=== PATIENT | female | born 1980 | race Caucasian/White ===

== ENCOUNTER → 2017-04-23 10:39 | Outpatient (CLI) | payer MEDICAID, SELFPAY ==
--- NOTE | 2017-04-23 10:43 | XR_ITS ---
XR IVP w KUB CLINICAL INDICATION: Right-sided pain following oophorectomy, right-sided abdominal pain ITS.REASON: looking for blockage ORDERING PHYSICIAN: Arjun Navarro MD PATIENT AGE: 37 years COMPARISON: None FINDINGS: Scattered exam shows multiple sutures in both right and left pelvic region. No renal or ureteral calculi evident. There is prompt bilateral renal excretion with kidneys of normal size shape and position. No hydronephrosis or ureteral dilatation. Urinary bladder has an unremarkable appearance with only minimal post void residual urine. No evidence of contrast extravasation IMPRESSION: Negative IVP. No evidence of obstruction or other significant anomalies
== END ==
PROVIDERS: Family Provider Family Medicine; PCP Internal Medicine Cardiovascular Disease; Visit Provider Obstetrics & Gynecology
DX: N20.0 Calculus of kidney (principal)
CPT/HCPCS: 74400; Q9967

== ENCOUNTER → 2017-06-04 12:56 | Outpatient (CLI) | payer MEDICAID, SELFPAY ==
--- NOTE | 2017-06-04 12:59 | MR_ITS ---
MR lumbar spine wo con, MR 3-d myelogram/MRCP HISTORY: Low back pain, constant right-sided low back pain with right foot numbness ORDERING PHYSICIAN: Cb Estrella MD PATIENT AGE: 37 years COMPARISON: MRI of 03/19/2011 TECHNIQUE: Standard multiplanar multiecho sequences are performed without contrast. 3-D MIP and myelographic images are also rendered and reviewed FINDINGS: There is normal alignment. The spinal cord ends at the L1 level. T11-T12, T12-L1, L1-L2, L2-L3, and L3-L4 have an unremarkable MRI appearance. L4-L5: There is a mild concentric bulging disc. There is a small broad-based right foraminal and lateral disc protrusion/disc osteophyte complex which does abut the exiting L4 nerve root and has a somewhat similar appearance compared to the previous exam. There is right foraminal narrowing at this level. Facet and ligamentum flavum hypertrophy is also present contributing to the lateral recess and foraminal narrowing. There is mild narrowing of the canal at L4-L5 with borderline canal stenosis. The facet hypertrophic changes are slightly worse compared to the previous exam. Right-sided foraminal narrowing may also be slightly worse. L5-S1: Unremarkable. No extruded herniated disc. IMPRESSION: 1. Mild Concentric bulging disc at L4-L5 with a small broad-based right foraminal and lateral disc protrusion/disc osteophyte complex which does abut the exiting L4 nerve root and has a somewhat similar appearance compared to the previous exam. There is right foraminal narrowing at this level. Facet and ligamentum flavum hypertrophy is also present contributing to the lateral recess and foraminal narrowing. There is mild narrowing of the canal at L4-L5 with borderline canal stenosis. The facet hypertrophic changes are slightly worse compared to the previous exam. Right-sided foraminal narrowing may also be slightly worse. 2. No extruded herniated disc
== END ==
PROVIDERS: Family Provider Family Medicine; PCP Internal Medicine Cardiovascular Disease; Visit Provider Family Medicine
DX: M54.41 Lumbago with sciatica, right side (principal)
CPT/HCPCS: 72148; 76376

== ENCOUNTER 2017-08-29 13:30 | Outpatient (RCR) | payer MEDICAID, SELFPAY | END 2017-08-29 13:31 | disposition home or self-care (01) | LOC: PT 13:30 | PROVIDERS: Family Provider Family Medicine; PCP Internal Medicine Cardiovascular Disease; Visit Provider Neurological Surgery | DX: M54.31 Sciatica, right side (principal) | CPT/HCPCS: 97010; 97012; 97014; 97033; 97035; 97110; 97140; 97164; G0283 ==

== ENCOUNTER → 2017-10-29 07:29 | Outpatient (CLI) | payer MEDICAID, SELFPAY ==
--- NOTE | 2017-10-29 07:36 | US_ITS ---
ULTRASOUND THYROID HISTORY: Thyroid enlarged Past history of thyroid nodule PROCEDURE: Multiple sagittal and transverse ultrasound images of the thyroid. COMPARISON 11/12/2010 ultrasound thyroid: ----- FINDINGS: Bilateral thyroid enlargement Right lobe with at least 3 nodules right lobe. One is calcification. Left lobe has one tiny cyst. Minimal flow to the thyroid on color Doppler survey RIGHT LOBE: 5.0 cm x 1.9 cm AP x 2.7 cm wide. . Nodule A: Hypoechoic small nodule lateral aspect upper pole measuring 3.4 mm maximally Unchanged since prior study 2010 and could merely be debris-filled cyst Nodule B: 9.1 mm X5.6 x 7.3 mm. Solid nodule interval development of echogenic calcifications along its posterior margin. More likely benign but somewhat concerning.. The nodule itself is not changed significantly in size since 2010 but the calcifications appear to be new. This warrants close follow-up and consideration of biopsy if it progresses .. Nodule C:. Up to 1.5 cm ovoid solid nodule at lower pole left lobe. This is new since prior study. LEFT LOBE: 4.9 cm length x 2.9 cm wide x 1.7 cm AP. Nodule A: Small likely cyst central lower left lobe this measures 4 mm widexless than 2 mm AP . The other small nodules previously identified in the left lobe are not apparent today. Left lobe fairly homogeneous today & otherwise unremarkable ISTHMUS: No significant appearing findings The thickness isthmus. Slightly greater particularly to the left than previous study but no discrete nodule.. Slight generous thickness at 5.5 mm AP just to the left of midline maximally but no nodule. IMPRESSION: 1. Bilateral Thyroid Enlargement. 2. Right Lobe: with 3 thyroid nodules.: ... The nodule labeled B is similar in size ( vs 2011) & is at the anterior lower/mid right lobe... However I would note this nodule does demonstrate some new calcification along its posterior margin .. Warrants close follow-up consider further investigation .... There is a new nearly 1.5 cm hypoechoic nodule at the lower pole right lobe labeled C ...Tiny stable nodule labeled A at upper pole not of concern 2. Left Lobe. No significant nodules. Only a small cyst centrally 3. Isthmus is slightly thicker but within normal limits.
--- NOTE | 2017-10-29 10:12 | MR_ITS ---
MR head/brain wo/w con Ordering Physician: Jamal Maldonado MD Patient Age: 37 years: Female HISTORY paresthesia. Involve the movement of arms and legs. Burning sensation entire body. Confusion. Symptoms off and on for years but worsening over the past year: ITS.REASON: INVOL MOVEMENT, PARESTHESIA OF SKIN TECHNIQUE: Pre and postcontrast imaging of brain : Precontrast Multiplanar FLAIR, T1, T2 weighted images along with axial diffusion/ADC imaging performed on 1.5 T. Siemens, MRI. Postcontrast imaging [id number] ProHance T1-weighted images axial & coronal plane performed COMPARISON :No relevant prior studies FINDINGS No mass lesion. No abnormal areas of enhancement. No lesions evident Normal anatomy. Cranial cervical junction is normal. The posterior fossa appears satisfactory. CP angles are clear IACs unremarkable. Right vertebral artery may very slightly indenting right aspect of the medulla on axial image 4 but this appears to be merely normal variation Sella on appears satisfactory. The ventricles and basal cisterns appear satisfactory. Jordan-white and white matter patterns and interface satisfactory. No remarkable deep white matter lesions or signal abnormalities. . No extra-axial collection. Diffusion images reveal no acute or recent infarct nor ischemia. The skull is intact. Scalp unremarkable. Orbits appear satisfactory. Moderate mucosal thickening throughout the ethmoid air cells bilaterally. A which may reflect a chronic sinusitis here. Mild mucosal thickening maxillary sinuses.. Mastoid air cells clear. Middle ear clear. IMPRESSION: ... 1. MR brain within normal limits. No mass lesion. No abnormal areas of enhancement. No white matter lesions evident.. No signal abnormalities. Minor observations in text: ..Moderate mucosal thickening throughout ethmoid air cells .. Generous mild ectatic right vertebral artery may slightly indent the right aspect medulla. Likely merely normal anatomic but noted
== END ==
PROVIDERS: Family Provider Family Medicine; PCP Internal Medicine Cardiovascular Disease; Visit Provider Family Medicine
DX: R25.9 Unspecified abnormal involuntary movements (principal); R20.2 Paresthesia of skin; E04.1 Nontoxic single thyroid nodule
CPT/HCPCS: 70553; 76536; A9576

== ENCOUNTER → 2017-11-05 13:47 | Outpatient (CLI) | payer MEDICAID, SELFPAY ==
--- NOTE | 2017-11-05 13:52 | XR_ITS ---
At XR hand LT min 3V HISTORY: Injury one year ago still 30 ITS.REASON: LEFT HAND PAIN ORDERING PHYSICIAN: Ernie Watkins PATIENT AGE: 37 years COMPARISON: None TECHNIQUE: PA, Oblique and Lateral Hand FINDINGS: No fracture or dislocation. No lytic or blastic change. There is normal mineralization.. The joint spaces are well-preserved. No significant degenerative/arthritic changes. At the DIP joint third finger there is a tiny cyst or defect at the mid articular cortex of distal phalanx base.. Very small less than 1 mm barely evident. Noted for completeness. Borderline narrowing at this joint. Small benign bone island at the ulnar styloid not felt to be of of significance IMPRESSION: No prominent findings. Left hand intact. Only note Tiny cyst or irregularity at the articular cortex base of distal phalanx third finger. Correlation required
== END ==
PROVIDERS: PCP Orthopaedic Surgery Adult Reconstructive Orthopaedic Surgery; Visit Provider Orthopaedic Surgery Adult Reconstructive Orthopaedic Surgery
DX: M79.642 Pain in left hand (principal)
CPT/HCPCS: 73130

== ENCOUNTER → 2017-11-10 15:19 | Outpatient (CLI) | payer MEDICAID, SELFPAY ==
[2017-11-10 16:41] LABS: Free T4 (Free Thyroxine) 0.93 ng/dl (0.76-1.46); Thyroid Stimulating Hormone 1.27 uIU/ml (0.358-3.740)
[2017-11-12 17:12] LABS: Thyroid Peroxidase Antibodies 18 IU/mL (0-34)
[2017-11-13 16:42] LABS: Calcitonin 2.4 pg/mL (0.0-5.0); Thyroid Stimulating Immunoglob <0.10 IU/L (0.00-0.55)
== END ==
PROVIDERS: Family Provider Family Medicine; PCP Orthopaedic Surgery Adult Reconstructive Orthopaedic Surgery; Visit Provider Otolaryngology
DX: E04.1 Nontoxic single thyroid nodule (principal)
CPT/HCPCS: 36415; 82308; 84439; 84443; 84445; 86376

== ENCOUNTER → 2017-11-14 08:43 | Outpatient (CLI) | payer MEDICAID, SELFPAY ==
--- NOTE | 2017-11-14 08:43 | FL_ITS ---
EXAM: Barium swallow/esophagram. INDICATION: ITS.REASON: dysphasia ORDERING PHYSICIAN: Rocco Levin MD PATIENT AGE: 37 years COMPARISON: None TECHNIQUE: In the upright position the patient was observed to swallow barium in both the AP and lateral view. The cervical esophagus was examined under fluoroscopy with images obtained. The patient was then placed prone in the right anterior oblique position and was observed to swallow barium with Valsalva technique . FLUOROSCOPY TIME: 50 seconds FINDINGS: There was no evidence of aspiration. There was normal peristalsis. No filling defects or mucosal abnormalities. No masses or strictures. The esophagus is midline in the neck and in the chest. No external filling defects are evident. IMPRESSION: Negative barium swallow.
== END ==
PROVIDERS: Family Provider Family Medicine; PCP Orthopaedic Surgery Adult Reconstructive Orthopaedic Surgery; Visit Provider Otolaryngology
DX: R13.10 Dysphagia, unspecified (principal)
CPT/HCPCS: 74220

== ENCOUNTER → 2017-11-19 09:46 | Outpatient (CLI) | payer MEDICAID, SELFPAY ==
--- NOTE | 2017-11-19 09:50 | US_ITS ---
FNA w guidance, FNA with guidance x2/second lesion US thyroid HISTORY: Suspicious thyroid nodules ITS.REASON: THYROID NODULE RT ORDERING PHYSICIAN: Rocco Levin MD PATIENT AGE: 37 years COMPARISON: 10/29/2017 Prebiopsy ultrasound: There are 2 nodules of interest 1 which is in the mid pole containing calcifications measuring 7 x 6 mm and one in the lower pole which is new at 1.5 cm. Fine-needle aspiration was performed of both of these nodules. TECHNIQUE: Following obtaining informed consent, using aseptic technique and local anesthesia with buffered lidocaine, fine-needle aspiration was performed of the each of the 2 nodules of interest using sonographic guidance. 3 passes were made into each nodule with a 25-gauge needle. Specimen was given to cytology. The patient tolerated the procedure well without evidence of immediate complications and left the ultrasound suite in stable condition. CYTOLOGY: Nodule A: Benign follicular nodule, no evidence of malignancy Nodule B: No evidence of malignancy, consistent with lymphocytic thyroiditis IMPRESSION: Status post fine-needle aspiration of the right thyroid nodules without complication. No evidence of malignancy
== END ==
PROVIDERS: Family Provider Family Medicine; PCP Orthopaedic Surgery Adult Reconstructive Orthopaedic Surgery; Visit Provider Otolaryngology
DX: E04.1 Nontoxic single thyroid nodule (principal)
CPT/HCPCS: 10022; 76536

== ENCOUNTER → 2017-11-20 14:21 | Outpatient (CLI) | payer MEDICAID, SELFPAY ==
--- NOTE | 2017-11-20 14:24 | MR_ITS ---
MR wrist LT wo con HISTORY left wrist pain, history of scaphoid fracture. Radial sided wrist pain ITS.REASON: LEFT WRIST PAIN ORDERING PHYSICIAN: Ernie Watkins PATIENT AGE: 37 years Comparison: 11/05/2017 FINDINGS: Motion artifact does obscure fine detail. No acute fracture is evident. A cystic areas present within the triquetrum measuring 5 mm. The scaphoid has an unremarkable appearance with no evidence of avascular necrosis. Normal alignment of the carpal bones. The ulnar and distal attachment of the triangular fibrocartilage is not well delineated due to motion artifact and cannot be completely cleared. No soft tissue lesions or masses. IMPRESSION: 1. No fracture or dislocation. 2. No evidence of avascular necrosis of the scaphoid. 3. 5 mm T2 hyperintensity in the central aspect of the trapezium with iso to slightly hypointense on the T1-weighted images consistent with a cystic lesion. Consider follow-up to confirm stability, probably benign
== END ==
PROVIDERS: Family Provider Family Medicine; PCP Orthopaedic Surgery Adult Reconstructive Orthopaedic Surgery; Visit Provider Orthopaedic Surgery Adult Reconstructive Orthopaedic Surgery
DX: S60.85 Superficial foreign body of wrist (principal)
CPT/HCPCS: 73221

== ENCOUNTER → 2018-01-05 13:53 | Outpatient (CLI) | payer MEDICAID, SELFPAY ==
--- NOTE | 2018-01-05 13:54 | US_ITS ---
ULTRASOUND THYROID PROCEDURE: Multiple sagittal & transverse ultrasound images of the thyroid. HISTORY: Thyroid nodule. Follow-up COMPARISON: Previous thyroid ultrasound October 29, 2017. And November 2010 ----- FINDINGS: Bilateral thyroid enlargement. At least 3 nodules on right. One with some calcification. Left lobe of tiny cysts. Relative decreased color Doppler flow noted bilateral RIGHT LOBE: 5.7 cm length is 2.8 cm wide x 2.3 cm AP. Nodule A: 4.3 mm to 4 mm probable debris-filled cyst upper pole Nodule B: Stable solid nodule Up to 8.6 mm x 7.7 x 6.8 mm nodule. However again note some scattered calcifications at the posterior wall. It. Nodule C: 14.4mm x 13 mm x 8 mm solid nodule at, off lower pole right kidney. No changes prior study LEFT LOBE: 5.6 cm length x 2.5 cm wide x 1.8 cm AP Nodule A: Tiny cystic area 3.8 x 1.1 mm midportion left lobe. Barely appreciable. Stable No other nodules or findings left lobe ISTHMUS: 3.9 mm AP thickness.. No nodules IMPRESSION Bilateral thyroid enlargement 3 nodules right lobe again observed.. No appreciable change since October . minimal calcification at posterior aspect solid nodule B . Solid Nodule C at lower pole measures 1.44 cm maximum on today's study.
== END ==
PROVIDERS: Family Provider Family Medicine; PCP Orthopaedic Surgery Adult Reconstructive Orthopaedic Surgery; Visit Provider Otolaryngology
DX: E04.1 Nontoxic single thyroid nodule (principal); E04.9 Nontoxic goiter, unspecified
CPT/HCPCS: 76536

== ENCOUNTER → 2018-07-14 13:37 | Outpatient (CLI) | payer MEDICAID, SELFPAY ==
--- NOTE | 2018-07-14 13:40 | US_ITS ---
ULTRASOUND THYROID HISTORY: Thyroid enlarged follow-up thyroid nodules PROCEDURE: Multiple sagittal and transverse ultrasound images of the thyroid. COMPARISON:. December 2017 thyroid ultrasound; October 2017 thyroid ultrasound,. Also November 2010 ----- FINDINGS: Bilateral thyroid enlargement with bilateral thyroid nodules most evident at the right lobe. Overall slight decreased color Doppler flow at the thyroid with no areas of significant increased flow as might be seen with active inflammation/thyroiditis RIGHT LOBE: 5 cm length x 3 cm wide x 2.3 cm AP. Nodule A: Very subtle Vague nodule at the posterior aspect of upper lobe measures 6.2 mm x 5.7 mm.. This was not seen on previous studies Nodule B: Subtle 4.3 mm x 2.9 mm hypoechoic hypoechoic nodule or debris-filled cyst at lateral aspect upper lobe. Minimal calcifications at posterior margin again noted. (this nodule matches area described on the previous 2018. This nodule size has not unchanged since 2010 but the minimal calcifications posteriorly slightly more apparent vs 2011.) Nodule C: Solid nodule anterior aspect mid right lobe again seen and stable stable measuring up to 7.6 x 6.5 mm. Anterior aspect mid right lobe. No significant change since 2018 Nodule D:. Solid nodule measures 9 .8 X 8.8mm X 7.4 mm-this nodule actually appears & measures smaller than previous study . LEFT LOBE: 5.8 cm length is 2.6 cm wide x 1.7 cm AP. Nodule A: Small vague density likely partial cyst with moderate wall thickness. Measures 4 mm midportion left lobe . ISTHMUS: This is measures 4.2 mm AP. -------IMPRESSION: 1. Bilateral thyroid enlargement, with bilateral thyroid nodules. 2. The vague nodules at the right lobe, previously seen have shown no progression.--(In fact the largest solid nodule at the lower pole right lobe measures and appears slightly smaller versus 2018 exam abdomen (... There is a vague new solid nodule identified on today's study at upper upper pole right lobe which measures 6 mm.. .
== END ==
PROVIDERS: PCP Family Medicine; Visit Provider Otolaryngology
DX: Z86.39 Personal history of other endocrine, nutritional and metabolic disease (principal)
CPT/HCPCS: 76536

== ENCOUNTER 2018-09-09 21:46 | Emergency (ER) | payer MEDICAID, SELFPAY ==
[2018-09-09 21:46] VITALS: BP 140/86; PULSE 78; RESP 16; TEMP 37; O2SAT 98
[2018-09-09 21:47] VITALS: BP 140/100; PULSE 93; RESP 22; TEMP 36.8; O2SAT 100; BMI 34.0
[2018-09-09 21:56] VITALS: BP 134/86; PULSE 97; RESP 18; O2SAT 100
--- NOTE | 2018-09-09 21:57 | XR_ITS ---
XR chest 2V HISTORY: Chest pain, shortness of air ITS.REASON: CP/SOA ORDERING PHYSICIAN: Bryce Roland MD PATIENT AGE: 38 years COMPARISON: None FINDINGS: The cardiomediastinal silhouette and pulmonary vascularity are within normal limits. The lungs are clear without infiltrates, suspicious nodules, or pleural effusions. There are increased markings in the right lung base consistent with summation artifact. No lobar consolidation or collapse. No acute bony abnormalities. IMPRESSION: No acute finding
--- NOTE | 2018-09-09 22:05 | CT_ITS ---
CT abdomen pelvis w con CLINICAL INDICATION: Abdominal pain and tenderness with rectal bleeding ITS.REASON: c/o abd pain that radiates into back and shoulder ORDERING PHYSICIAN: Bryce Roland MD PATIENT AGE: 38 years COMPARISON: None TECHNIQUE: Axial images obtained with sagittal and coronal reformats. All CT scans at the facility use one or more dose reduction, viz: automated exposure control, ma/kV adjustment per patient size (including targeted exams where dose is matched to indication, i.e. head), or iterative reconstruction technique. PROCEDURE: Oral Contrast: None IV Contrast: 75 mg Optiray 350. FINDINGS: Lower thorax: Mild thickening of the distal esophagus small amount of air within the esophagus and small hiatal hernia. ABDOMEN: Liver: No masses or biliary dilatation. Gallbladder: Nondistended. No radio opaque stones. Pancreas: No masses or peripancreatic fluid collections. Spleen: Unremarkable. Adrenals: There is a small left adrenal nodule at 12 mm nonspecific Kidneys/ureters: No masses. No renal calculi. No hydronephrosis. No perinephric fluid collections. No ureteral dilatation or obvious ureteral calculi. Stomach bowel: There is mild amount retained colonic feces in the ascending colon. Mild gaseous distention of the colon. Appendix: No evidence of appendicitis. PELVIS: Reproductive: Prior hysterectomy Bladder: Nondistended. No obvious stones or masses. ABDOMEN & PELVIS: Peritoneum: No abnormal fluid collections. No obvious inflammatory changes. No free air. Lymph nodes: Small nodes are present in the periaortic region nonspecific. Vasculature: No evidence of abdominal aortic aneurysm. No retroperitoneal hemorrhage evident. Bones: No acute fracture Small umbilical hernia containing fat IMPRESSION: 1. No acute abdominal or pelvic findings. 2. Small hiatal hernia. 3. Nonspecific 12 mm left adrenal nodule 4. Mild constipation of the right: with mild gaseous distention of the sigmoid colon
[2018-09-09 22:11] LABS: Basophils # 0.1 K/mm3 (0-0.2); Eosinophils # 0.2 K/mm3 (0.0-0.4); Hematocrit 42.5 % (37.0-47.0); Hemoglobin 14.7 g/dL (12.2-16.2); Lymphocytes # 4.2 K/mm3 (0.7-4.5); Lymphocytes % 41.7 % (10-50); Mean Corpuscular HGB Conc 34.6 g/dL (31.8-35.4); Mean Corpuscular Hemoglobin 31.1 pg (27.0-31.2); Mean Corpuscular Volume 89.7 fl (81-99); Mean Platelet Volume 7.1 fl (7.4-10.4); Monocytes # 0.4 K/mm3 (0.1-1.0); Monocytes % 3.4 % (1.7-9.3); Neutrophils # 5.3 K/mm3 (1.8-7.8); Neutrophils % 51.8 % (37.0-80.0); Platelet Count 362 K/mm3 (142-424); Red Blood Count 4.73 M/mm3 (4.20-5.40); Red Cell Distribution Width 13.7 % (11.5-17.5); White Blood Count 10.1 K/mm3 (4.8-10.8)
--- NOTE | 2018-09-09 22:26 | CT_ITS ---
CT angio chest HISTORY: Chest pain, smoker ITS.REASON: pe protocol/ cp ORDERING PHYSICIAN: Bryce Roland MD PATIENT AGE: 38 years COMPARISON: None TECHNIQUE: Axial images obtained following the administration of 70 mL of Optiray 350 . Sagittal, and coronal reformatted images are also generated and reviewed. All CT scans at the facility use one or more dose reduction, viz: automated exposure control, ma/kV adjustment per patient size (including targeted exams where dose is matched to indication, i.e. head), or iterative reconstruction technique. FINDINGS: PULMONARY ARTERIES:Pulmonary arterial opacification is somewhat limited. No central pulmonary embolus evident. Peripheral pulmonary arteries are not well opacified.. AORTA:No acute finding. No thoracic aortic aneurysm or dissection evident LUNGS:Centrilobular emphysema with mild coarsening of bronchovascular markings suggesting smoking-related lung disease.. PLEURAL SPACES:No significant effusion. No evidence of pneumothorax. HEART:Unremarkable. Normal heart size. No significant pericardial effusion. MEDIASTINAL AND HILAR STRUCTURES:No mediastinal or hilar mass evident. No dominant adenopathy.. The thyroid gland is slightly prominent BONY STRUCTURES:No acute bony abnormalities apparent LYMPH NODES:No enlarged lymph nodes evident UPPER ABDOMEN:There is a small hiatal hernia IMPRESSION: 1. No evidence of central pulmonary embolus. The peripheral pulmonary arteries are not well opacified. 2. Centrilobular emphysema with suspected smoking-related lung disease. 3. Small hiatal hernia
[2018-09-09 22:28] LABS: Anion Gap 16.7 mEq/L (5-15); Blood Urea Nitrogen 13 mg/dL (7-18); Calcium 9.2 mg/dL (8.5-10.1); Carbon Dioxide 22 mmol/L (21.0-32.0); Chloride 105 mmol/L (98-107); Creatinine Clearance Estimated 132 mL/min (50-200); Creatinine,Serum 0.82 mg/dL (0.55-1.02); Estimated Glomerular Filt Rate 78 ml/min (>60); GFR (African American) 94 ML/MIN (>60); Glucose 90 mg/dL (74-106); Potassium 3.7 mmoL/L (3.5-5.1); Sodium 140 mmol/L (136-145); Troponin I < 0.02 ng/ml (0.00-0.06)
[2018-09-09 22:29] LABS: Amylase 27 U/L (25-115); Ethyl Alcohol 0 mg/dL (0-99); Lipase 110 u/L (73-393)
[2018-09-09 22:52] LABS: Microscopic, Urine URINE MICROSCOPIC (MICROSCOPIC)
--- NOTE | 2018-09-09 22:57 | [facility].EDSOB ---
ED Disposition Clinical Impression: Dyspnea Qualifiers: Dyspnea type: unspecified Qualified Code(s): R06.00 - Dyspnea, unspecified Disposition: Home, Self-Care Condition on Discharge: Good Instructions: DI for Shortness of Breath Additional Instructions: fluids and call pcp this am for follow up Referrals: Provider,Referral, MD [Primary Care Provider] - - Critical Care Critical Care Time: No Attestation: On 09/09/18, the high probability of a clinically significant, sudden or life threatening deterioration of the following system(s) required my full and direct attention, intervention and personal management. The time I documented below is in addition to time spent performing reported procedures but includes the following listed in this critical care notation. Medical Decision Making - Medical Records Medical records reviewed: Yes: I reviewed the patient's medical records. - Mohit Inquiry Pt receiving controlled substance: No Vital Signs: 09/09/18 21:46 09/09/18 21:47 09/09/18 21:56 Temperature 98.6 F 98.3 F Temperature Source Oral Oral Pulse Rate [Right Brachial] 78 93 H 97 H Respiratory Rate 16 22 18 Blood Pressure [Right Arm] 140/86 140/100 H 134/86 Blood Pressure Mean [Right Arm] 104 113 102 Blood Pressure Source [Right Arm] Automatic Cuff Automatic Cuff Automatic Cuff Blood Pressure Position [Right Arm] Supine Sitting Sitting 02 Sat by Pulse Oximetry 98 100 100 Oxygen Delivery Method Room Air Room Air Room Air 09/10/18 00:10 Temperature Temperature Source Pulse Rate [Right Brachial] 73 Respiratory Rate 16 Blood Pressure [Right Arm] 116/75 Blood Pressure Mean [Right Arm] 88 Blood Pressure Source [Right Arm] Automatic Cuff Blood Pressure Position [Right Arm] 02 Sat by Pulse Oximetry 100 Oxygen Delivery Method Room Air - Lab Data Lab results reviewed: Yes: I reviewed the patient's lab results. Lab Results 09/09/18 21:50: WBC 10.1, RBC 4.73, Hgb 14.7, Hct 42.5, MCV 89.7, MCH 31.1, MCHC 34.6, RDW 13.7, Plt Count 362, MPV 7.1 L, Neut % (Auto) 51.8, Lymph % (Auto) 41.7, Mcmullen % (Auto) 3.4, Eos % (Auto) 2.0, Baso % (Auto) 1.0, Neut # (Auto) 5.3, Lymph # (Auto) 4.2, Mcmullen # (Auto) 0.4, Eos # (Auto) 0.2, Baso # (Auto) 0.1 09/09/18 21:50: Sodium 140, Potassium 3.7, Chloride 105, Carbon Dioxide 22, Anion Gap 16.7 H, BUN 13, Creatinine 0.82, Estimated Creat Clear 132, Estimated GFR 78, Est GFR ( Amer) 94, Glucose 90, Calcium 9.2, Troponin I < 0.02, Plasma/Serum Alcohol 0 09/09/18 21:50: Amylase 27 09/09/18 21:50: Lipase 110 09/09/18 21:50: Total Bilirubin 0.3, Direct Bilirubin 0.1, Indirect Bilirubin 0.2, AST 13 L, ALT 29, Alkaline Phosphatase 109, Total Protein 7.2, Albumin 4.2 09/09/18 22:35: Urine Color Yellow, Urine Appearance Clear, Urine pH 8.0, Ur Specific [place] 1.010, Urine Protein Negative, Urine Glucose (UA) Negative, Urine Ketones Negative, Urine Blood Negative, Urine Nitrate Negative, Urine Bilirubin Negative, Urine Urobilinogen 0.2, Ur Leukocyte Esterase Trace, Urine WBC Occasional, Ur Squamous Epith Cells Occasional, Urine Bacteria Trace 09/09/18 22:35: Urine Opiates Screen Negative, Urine Methadone Screen Negative, Ur Barbituates Screen Negative, Ur Phencyclidine Scrn Negative, Ur Amphetamines Screen Positive H, U Benzodiazepines Scrn Negative, Urine Cocaine Screen Negative, U Marijuana (THC) Screen Negative Result diagrams: 09/09/18 21:50 09/09/18 21:50 Orders (Tests/Meds): ED MEDICATIONS Generic Name Dose Route Start Last Admin Trade Name Freq PRN Reason Stop Dose Admin Sodium Chloride 1,000 mls @ 999 mls/hr 09/09/18 22:00 09/09/18 21:59 Sod Chlor 0.9% 1000ml Bag IV 09/09/18 23:00 999 mls/hr .[id number] JU Administration Discontinued Medications Generic Name Dose Route Start Last Admin Trade Name Freq PRN Reason Stop Dose Admin Aspirin 243 mg 09/09/18 21:57 09/09/18 21:59 Aspirin 81mg Chewable Tablet PO 09/09/18 21:58 243 mg ONCE ONE Admini
[2018-09-09 23:02] LABS: Appearance,Urine CLEAR (Clear); Bilirubin,Urine Negative (Negative); Blood, Urine Negative (Negative); Color,Urine YELLOW (Yellow); Glucose,Urine (UA) Negative (Negative); Ketones,Urine Negative (Negative); Leukocyte Esterase,Urine TRACE (Negative); Nitrate,Urine Negative (Negative); Protein,Urine Negative (Negative); Urobilinogen,Urine 0.2 EU/dl (0.2)
[2018-09-09 23:09] LABS: Amphetamine/Metha Screen,Urine Positive ng/mL (<1000); Barbiturates Screen,Urine Negative ng/mL (<200); Benzodiazepines Screen,Urine Negative ng/mL (<200); Cannabinoid Screen,Urine Negative ng/mL (<50); Cocaine Screen,Urine Negative ng/mL (<300); Methadone Screen,Urine Negative ng/mL (<300); Opiate Screen,Urine Negative ng/mL (<300); Phencyclidine Screen,Urine Negative ng/mL (<25)
[2018-09-09 23:13] LABS: WBC,Urine Occasional #/hpf (0-3)
[2018-09-09 23:14] LABS: Bacteria,Urine Trace /lpf; Squamous Epithelial Cell,Urine Occasional #/hpf (0-5)
[2018-09-10 00:10] VITALS: BP 116/75; PULSE 73; RESP 16; O2SAT 100
[2018-09-10 00:13] LABS: Alanine Aminotransferase 29 U/L (12-78); Albumin Level 4.2 gm/dL (3.4-5.0); Alkaline Phosphatase 109 U/L (46-116); Aspartate Amino Transferase 13 U/L (15-37); Bilirubin,Direct 0.1 mg/dL (0.0-0.2); Bilirubin,Indirect 0.2 mg/dL (0.0-0.9); Bilirubin,Total 0.3 mg/dL (0.2-1.0); Total Protein,Serum 7.2 gm/dL (6.4-8.2)
[2018-09-10 00:43] VITALS: BP 141/58; PULSE 93; RESP 20; TEMP 37; O2SAT 98
== END 2018-09-10 00:49 | disposition home or self-care (01) ==
PROVIDERS: Emergency Provider Emergency Medicine
DX: R06.00 Dyspnea, unspecified (principal); R07.89 Other chest pain; E03.9 Hypothyroidism, unspecified; M79.7 Fibromyalgia; F17.210 Nicotine dependence, cigarettes, uncomplicated
CPT/HCPCS: 71046; 71275; 74177; 80048; 80076; 80305; 81001; 82150; 83690; 84484; 85025; 93005; 96365; 96375; 99284; J2405; Q9967